=== PATIENT | male | born 1965 | race Two or more races ===

== ENCOUNTER 2018-07-10 21:22 | Emergency (ER) | payer OTHER ==
[2018-07-10 21:29] VITALS: BMI 23.6
--- NOTE | 2018-07-11 00:24 | PDOC ---
History of Present Illness - General Chief Complaint: Pain Stated Complaint: LT LEG PAIN Time Seen by Provider: 07/11/18 00:24 History Source: Patient - History of Present Illness Initial Comments: 07/11/18 00:31 53 year old male with a 2 day h/o back, groin and leg pain. 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 Pain is aching, 10/10, constant, and worse with ambulation. No h/o similar pain. Denies bowel/bladder incontinence as well as dysuria/hematuria. Denies saddle anesthesia. Tried Tylenol for the pain with little relief. The patient denies chest pain, shortness of breath, abdominal pain, nausea/ vomiting, diarrhea/constipation. NKDA Surgical: denies Social: denies nicotine, social alcohol, denies recreational drugs PMD: Dr. Danya Humphrey Past History - Past Medical History Allergies/Adverse Reactions: Allergies Allergy/AdvReac Type Severity Reaction Status Date / Time No Known Allergies Allergy Verified 07/10/18 21:26 Home Medications: Ambulatory Orders Atorvastatin Ca [Lipitor] 40 mg PO HS 01/18/16 Naproxen [Naprosyn -] 500 mg PO BID PRN #30 tablet 05/29/16 Methocarbamol [Robaxin -] 1,500 mg PO Q8H PRN 7 Days #21 tablet 07/11/18 COPD: No Hypercholesterolemia: Yes - Suicide/Smoking/Psychosocial Hx Smoking History: Never smoked Have you smoked in the past 12 months: No Hx Alcohol Use: No Drug/Substance Use Hx: No Substance Use Type: None Review of Systems - Review of Systems Constitutional: No: Chills, Fever HEENTM: No: Blurred Vision, Double Vision Respiratory: No: Cough, Shortness of Breath Cardiac (ROS): No: Chest Pain, Lightheadedness, Palpitations, Syncope ABD/GI: No: Constipated, Diarrhea, Nausea, Vomiting : No: Burning, Dysuria Musculoskeletal: Yes: Back Pain Neurological: No: Numbness, Tingling *Physical Exam - Vital Signs Last Vital Signs Temp Pulse Resp BP Pulse Ox 98.3 F 65 18 128/79 98 07/10/18 21:23 07/10/18 21:23 07/10/18 21:23 07/10/18 21:23 11/07/18 21:23 - Physical Exam General Appearance: Yes: Nourished, Appropriately Dressed HEENT: positive: Normal Voice, Hearing Grossly Normal Neck: positive: Trachea midline, Supple Respiratory/Chest: positive: Lungs Clear, Normal Breath Sounds Cardiovascular: positive: S1, S2. negative: Edema, JVD, Murmur Gastrointestinal/Abdominal: positive: Normal Bowel Sounds, Soft. negative: Distended, Guarding, Rebound, Tenderness, Hernia, Mass Male Genitalia: positive: other (no inguinal deficit B/L) Musculoskeletal: negative: CVA Tenderness (R), CVA Tenderness (L) Extremity: positive: Normal Capillary Refill, Normal Inspection, Other ( Straight leg test positive) Integumentary: positive: Normal Color, Dry, Warm Neurologic: positive: Fully Oriented, Alert Medical Decision Making - Medical Decision Making 07/11/18 01:22 53 year old male with back, groin and leg pain Straight leg test negative Clinical suspicion for sciatica, however will examine groin area for inguinal hernia 07/11/18 02:00 No inguinal deficit on PE Will discharge patient with Robaxin for pain, and PMD follow-up for further evaluation including possible MRI Patient and patient's counseled on plan of care, given return precautions and discharged home. I discussed the physical exam findings, ancillary test results and final diagnoses with the patient. I answered all of the patient's questions. The patient was satisfied with the care received and felt comfortable with the discharge plan and treatment plan. The patient will return to the Emergency Department with any new, persistent or worsening symptoms. *DC/Admit/Observation/Transfer Diagnosis at time of Disposition: Back pain - Discharge Dispostion Disposition: HOME Condition at time of disposition: Good Decision to Admit order: No - Prescriptions Prescriptions: Methocarbamol [Robaxin -] 1,500 mg PO Q8H PRN 7 Days #21 tablet PRN Reason: Back Pain - Referrals Referrals: Gopal Hagan [Primary Care Provider] - - Patient Instructions Printed Discharge Instructions: DI for Low Back Pain, DI for Sciatica, DI for Back Pain With Sciatica Additional Instructions: You were evaluated today for your back, groin and leg pain. We are sending a prescription for pain medication to your pharmacy. Please make a follow-up appointment with Dr. Hagan as you may need a MRI of your back. Your care is not complete until you follow-up with Dr. Hagan. Return to the Emergency Department for any new/worsening/concerning symptoms including inability to walk, loss of bladder or bowel control. - Post Discharge Activity
[2018-07-11] MEDS ORDERED: METHOCARBAMOL 500 MG TABLET PO ONE (01:21)
[2018-07-11] MEDS ORDERED: METHOCARBAMOL 500 MG TABLET ONE (01:28)
[2018-07-11 01:33] VITALS: BP 110/78; PULSE 88; TEMP 98.5
--- NOTE | 2018-07-11 04:34 | PDOC ---
Attending Attestation - Resident Resident Name: Carmen Eason - ED Attending Attestation I have performed the following: I have examined & evaluated the patient, The case was reviewed & discussed with the resident, I agree w/resident's findings & plan, Exceptions are as noted - HPI HPI: 07/11/18 04:32 see mdm - Physicial Exam PE: 07/11/18 04:32 see mdm - Medical Decision Making 07/11/18 04:32 53M with back pain and groin px after physical exertion, no masses palpated no saddle anesthesia, incontinence, weakness, numbness exam inconsistent with hernia detailed exam as noted in associated resident note Likely muscular strain, imaging not indicated analgesia re-eval likely out patient follow up
--- NOTE | 2018-07-11 11:08 | EKG ---
Test Reason : Blood Pressure : / mmHG Vent. Rate : 061 BPM Atrial Rate : 061 BPM P-R Int : 144 ms QRS Dur : 128 ms QT Int : 426 ms P-R-T Axes : 038 041 049 degrees QTc Int : 428 ms NORMAL SINUS RHYTHM RIGHT BUNDLE BRANCH BLOCK ABNORMAL ECG WHEN COMPARED WITH ECG OF 29-MAY-2016 15:51, NO SIGNIFICANT CHANGE WAS FOUND Confirmed by JOHN GREER MD ([id number]) on 07/11/2018 11:07:45 AM Referred By: Confirmed By:JOHN GREER MD
== END 2018-07-11 01:33 | disposition home or self-care (01) ==
LOC: JER 21:22
DX: M54.5 Low back pain (principal); X50.1XXA Overexertion from prolonged static or awkward postures, initial encounter; Y93.89 Activity, other specified; Y92.89 Other specified places as the place of occurrence of the external cause; Y99.8 Other external cause status
CPT/HCPCS: 93005; 93010; 99281-25